=== PATIENT | female | born 1985 | race African-American/Black ===

== ENCOUNTER 2017-07-22 20:09 | Day surgery (SDC) | payer OTHER ==
[2017-07-22 20:37] VITALS: BMI 25.0
--- NOTE | 2017-07-23 06:58 | PRG ---
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 Alexia Mcdonald. CHIEF COMPLAINT: Abdominal pain. HISTORY OF PRESENT ILLNESS: The patient is a 31-year-old female, G1, P0 with an intrauterine pregnan cy at 40 weeks, who presented to Labor and Delivery with a 2-day history of abdominal pains, becoming more intense and more frequent this afternoon. Patient reports the last time she was checked on Julianne rsday. Approximately 3 days before presentation, she was 2 cm dilated here in the office. Denies an y recent illness, fever, fall, headache, chest pain, shortness of breath, nausea, vomiting, diarrhea, constipation. She denies rash, hip problems, knee problems, back problems, vaginal bleeding, leakag e of fluid, or urinary urgency. PAST MEDICAL HISTORY: Negative. PAST SURGICAL HISTORY: She has had wisdom teeth removed. ALLERGIES: No known drug allergies. MEDICATIONS: vitamins. SOCIAL HISTORY: Denies drug, alcohol, or tobacco use. OB HISTORY: This is her first . OB LABORATORY DATA: Blood type is A+, antibody screen is negative, RPR is nonreactive, HIV is nonrea ctive for the first and third trimester. Hepatitis B surface antigen is nonreactive. GC, Chlamydia negative. Group B strep is negative. REVIEW OF SYSTEMS: See HPI. PHYSICAL EXAMINATION: VITAL SIGNS: Blood pressure 118/75, heart rate is 74, respiratory rate is 16, temperature 98.7. GENERAL: She appears to be in no acute distress. She is alert and oriented and cooperative and plea micheline to interact with. HEAD: Normocephalic, atraumatic. LUNGS: Clear to auscultation bilaterally. HEART: Regular rate and rhythm. ABDOMEN: Soft and between contractions and nontender. EXTREMITIES: Nontender and nonedematous. CERVICAL EXAM: Per nursing staff, she is 215, -2 station with a repeat exam in approximately 3-1/2 h ours later, unchanged. heart tracing performed for pertinent labor over the course of over 3 hours. Baseline is noted to be in the 130s with moderate long-term variability, positive accelerations. No decelerations. T ocometer showing contractions. Spacing out to about 6-7 minutes apart . ASSESSMENT AND PLAN: The patient is a 31-year-old female with threatened labor, likely in latent lab or stage but is not making any progress over the course of 3-1/2 hours. The patient has opted to go home and has been given term-labor precautions and instructions to keep her doctor's appointment or t o return to Labor and Delivery as needed. Fetus has a category 1 tracing.
== END 2017-07-23 00:20 | disposition home or self-care (01) ==
LOC: L&D/OP 20:09
PROVIDERS: ATTEND Student in an Organized Health Care Education/Training Program
DX: O99.89 Other specified diseases and conditions complicating pregnancy, childbirth and the puerperium (principal); R10.9 Unspecified abdominal pain; Z3A.40 40 weeks gestation of pregnancy; Z79.899 Other long term (current) drug therapy; Z98.818 Other dental procedure status
CPT/HCPCS: 99283

== ENCOUNTER 2017-07-23 17:46 | Inpatient (IN) | payer OTHER ==
[2017-07-23 18:22] VITALS: BMI 25.0
[2017-07-23] MEDS ORDERED: Promethazine HCl 25 MG/ML VIAL IM PRN (18:32)
[2017-07-23] MEDS ORDERED: Ibuprofen 800 MG TAB PO PRN (18:32)
[2017-07-23] MEDS ORDERED: LR / Pitocin 40 units/1000 ml 1,000 ML IV PRN (18:32)
[2017-07-23] MEDS ORDERED: HYDROcodone/Acetaminophen 5/325 mg Tablet PO PRN ×2 (18:32)
[2017-07-23] MEDS ORDERED: Lidocaine 1% (PF) 30 ML VIAL SC PRN (18:32)
[2017-07-23] MEDS ORDERED: Ondansetron HCl/PF 4 MG/2 ML Vial IVP PRN (18:32)
--- NOTE | 2017-07-23 18:36 | PDOC.LDHP ---
Labor and Delivery H&P HPI: 31 yo G1Po patient of Dr Mcdonald admitted with regular CTXs. Was seen in L&D yesterday and was 2 cm then. No ROM, no PIH Sxs. No other issues. GBS negative. $cm after L&D triage check. Current gestational age (weeks): 40 Due date: 07/23/17 Dating criteria: last menstrual period Grav: 1 Para: 0 Current complications: none Abnormal US findings: No Current medications: none Previous surgical history: other (wisdom teeth) Allergies/Adverse Reactions: Allergies Allergy/AdvReac Type Severity Reaction Status Date / Time No Known Allergies Allergy Verified 07/22/17 20:30 Social history: none - Physical Exam Vital signs reviewed and normal: yes (BP 129/77) General: NAD Heart: RRR Lungs: CTAB Abdomen: gravid - Vaginal Exam cm dilated: 4 (BOWI) Effacement: 50% Station: -1 - Assessment L&D Assessment: term patient in labor - Plan Plan: admit to L&D (Dr Mcdonald notified of patient's admission status. She will assume care until 0000 07/24/17 and has asked us to assume care after that if delivers after.), labor augmentation if indicated, informed consent obtained
[2017-07-23] MEDS: Lactated Ringer's 1,000 ML IV SCH ×2 (18:42→20:31)
[2017-07-23 19:12] LABS: Hemoglobin 12.2 g/dL (12.0-16.0); Mean Corpuscular HGB CONC 33.3 g/dL (32.0-36.0); Mean Corpuscular Hemoglobin 30.2 pg (27.0-31.0); Mean Corpuscular Volume 90.8 fl (81.0-99.0); Mean Platelet Volume 8.6 fL (7.4-10.4); Platelet Count 153 thou/uL (130-400); RBC Distribution Width 11.8 % (11.5-14.5); Red Blood Cell (RBC) Count 4.04 mill/uL (4.20-5.40); White Blood Cell (WBC) Count 10.1 thou/uL (4.8-10.8)
[2017-07-23] MEDS ORDERED: Fentanyl 4 mcg/Marc 0.1% Cadd 100 ML ONE (19:23)
[2017-07-23 20:00] LABS: HBSAg Index 0.15 S/CO (0-0.99); HIV (1/2) Antibody/Antigen Non-Reactive (NonReactive); HIV 1/2 INDEX 0.06 S/CO (<1.00); Hep B Surf Ag Non-Reactive S/CO (NonReactive); Syphilis Antibody Nonreactive (Nonreactive); Syphilis Antibody Index 0.04 S/CO (<1.00 Non-Reactive)
--- NOTE | 2017-07-23 22:30 | PDOC.LDPN ---
Labor & Delivery Progress Note - Subjective Subjective: other (BIJAN in use) - Objective Vital signs reviewed and normal: yes General: NAD Uterine fundus: non tender SVE: by Me Dilation: 6 Effacement: 75% Station: -1 FHT: category 1 [place] contractions every: Q3-6 - Assessment (1) Active labor at term Code(s): [id number] - Current Visit: Yes Status: Acute Plan: continue plan of care
[2017-07-24] MEDS ORDERED: Fentanyl 4 mcg/Marc 0.1% Cadd 100 ML ONE (02:37)
[2017-07-24] MEDS ORDERED: Measles/Mumps/Rubella 10 MCG/0.5 ML VIAL SC ONE (05:01)
[2017-07-24] MEDS ORDERED: diphenhydrAMINE 25 MG CAP PO PRN (05:01)
[2017-07-24] MEDS ORDERED: Benzocaine/Menthol 20-0.5% 60 ML CAN TOP PRN (05:01)
[2017-07-24] MEDS ORDERED: Varicella virus, LIVE 0.5 ML VIAL SC ONE (05:01)
[2017-07-24] MEDS ORDERED: Adacel (T-DAP) 0.5 ML VIAL IM ONE (05:01)
[2017-07-24] MEDS ORDERED: Acetaminophen/Codeine 30-300mg Tablet PO PRN ×2 (05:01)
--- NOTE | 2017-07-24 05:06 | PDOC.OPDEL ---
OB Operative/Delivery Note Delivery Dr/Surgeon: Jose Assist: None Pre-Delivery Diagnosis: active labor Procedure/Post Delivery Dx: spontaneous vaginal delivery Anesthesia: epidural (And local for geovanna-clitoral tear (mucosal); also repaired a first degree right hymenal lacerato less than 2cm in length) - Findings A - 1 min: 8 - 5 min: 9 - Additional Findings/Plan Placenta delivered: spontaneous (abdulkadir mechanism, delivered within 5 minutes of child) Repaired Obstetrical Laceration: 1st degree Estimated blood loss: 300 Compilations/Other Findings: Vigorous female, apgars 8/9.3VC, no NC Post delivery plan: routine recovery (all counts correct)
[2017-07-24] MEDS ORDERED: LR / Pitocin 40 units/1000 ml 1,000 ML IV SCH (05:15)
[2017-07-24] MEDS: Ibuprofen 800 MG TAB PO SCH ×3 (06:01→21:54)
[2017-07-24] MEDS ORDERED: Lidocaine 2% MPF 10 ML AMP (For Epidural Use) ONE (08:47)
[2017-07-24] MEDS: Ferrous Sulfate 325 MG TAB PO SCH ×2 (09:12→16:16)
[2017-07-24] MEDS: Prenatal Vitamin 1 TAB PO SCH (09:13)
[2017-07-24] MEDS: Docusate Calcium (SURFAK) 240 MG CAP PO SCH ×2 (09:13→21:54)
[2017-07-24] MEDS: Lactated Ringer's 1,000 ML IV SCH ×3 (09:17→23:08)
[2017-07-25] MEDS: Ibuprofen 800 MG TAB PO SCH ×3 (05:30→21:53)
[2017-07-25 06:15] LABS: Hemoglobin 9.1 g/dL (12.0-16.0); Mean Corpuscular HGB CONC 32.5 g/dL (32.0-36.0); Mean Corpuscular Hemoglobin 29.8 pg (27.0-31.0); Mean Corpuscular Volume 91.6 fl (81.0-99.0); Mean Platelet Volume 8.7 fL (7.4-10.4); Platelet Count 151 thou/uL (130-400); RBC Distribution Width 11.8 % (11.5-14.5); Red Blood Cell (RBC) Count 3.04 mill/uL (4.20-5.40); White Blood Cell (WBC) Count 11.7 thou/uL (4.8-10.8)
[2017-07-25] MEDS: Docusate Calcium (SURFAK) 240 MG CAP PO SCH ×2 (09:01→21:53)
[2017-07-25] MEDS: Prenatal Vitamin 1 TAB PO SCH (09:01)
[2017-07-25] MEDS: Ferrous Sulfate 325 MG TAB PO SCH ×2 (09:02→18:15)
--- NOTE | 2017-07-25 10:07 | PRG ---
DATE OF SERVICE: 07/25/2017 The patient is a 31-year-old who is now day 1, status post an uncomplicated term spontaneo us vaginal delivery. She reports today that she is tolerating p.o., voiding on her own, having decre ased lochia and ambulating. PHYSICAL EXAMINATION: VITAL SIGNS: Blood pressure 91/57, temperature 98.0, pulse of 80, respiratory rate 20. GENERAL: She appears to be in no acute distress. She is alert and oriented, and cooperative and ple asant to interact with. HEENT: Head is normocephalic, atraumatic. ABDOMEN: Soft. Fundus is firm. EXTREMITIES: Nontender with minimal edema. Her hemoglobin is 9.1, hematocrit 27.9, platelets of 151,000. ASSESSMENT AND PLAN: The patient is a 31-year-old female who is now day 1, status post un complicated term spontaneous vaginal delivery, whose recovery has been routine thus far. Anticipate discharge tomorrow.
[2017-07-25] MEDS: Lactated Ringer's 1,000 ML IV SCH ×2 (10:21→18:08)
[2017-07-26] MEDS: Lactated Ringer's 1,000 ML IV SCH ×2 (05:40→12:56)
[2017-07-26] MEDS: Ibuprofen 800 MG TAB PO SCH ×2 (06:16→14:22)
[2017-07-26] MEDS: Ferrous Sulfate 325 MG TAB PO SCH (09:43)
[2017-07-26] MEDS: Prenatal Vitamin 1 TAB PO SCH (09:44)
[2017-07-26] MEDS: Docusate Calcium (SURFAK) 240 MG CAP PO SCH (09:44)
--- NOTE | 2017-07-26 12:16 | PDOC.PP ---
Post Progress Note Post Day #: 2 PO intake tolerated: yes Flatus: yes Ambulation: yes Weight Weight 150 lb - Physical Examination General: NAD Cardiovascular: RRR Respiratory: non-labored breathing Abdominal: no distention, appropriately TTP Fundus firm & at: umb-2 Skin: no rash Neurological: no gross focal deficits Psychiatric: normal affect Result Diagrams: 07/25/17 05:17 Additional Labs: Post Labs Hep Bs Antigen Non-Reactive S/CO (NonReactive) 07/23/17 18:42 (1) Vaginal delivery Code(s): O80 - ENCOUNTER FOR FULL-TERM UNCOMPLICATED DELIVERY Status: Acute
[2017-07-26 12:21] VITALS: TEMP 98.4
[2017-07-26 12:22] VITALS: BP 109/56
== END 2017-07-26 14:40 | disposition home or self-care (01) | DRG 775 ==
LOC: L&D/OP 17:46 → L&D 19:36 → 3SW 07-24 08:27
PROVIDERS: ADMIT Student in an Organized Health Care Education/Training Program; ATTEND Student in an Organized Health Care Education/Training Program
PROC: 10E0XZZ Delivery of Products of Conception, External Approach (ICD-10-PCS; principal; 2017-07-24)
PROC: 0HQ9XZZ Repair Perineum Skin, External Approach (ICD-10-PCS; 2017-07-24)
DX: O70.0 First degree perineal laceration during delivery (principal); Z37.0 Single live birth; Z3A.40 40 weeks gestation of pregnancy
CPT/HCPCS: 36415; 51702; 85027; 86780; 87340; 87389; 99283; 99285; J2001

== ENCOUNTER 2019-01-11 20:34 | Inpatient (IN) | payer OTHER ==
[~2019-01-11 20:34] MED LIST: Bupivacaine/Epinephrine 0.25% 30 ML VIAL ONE
[2019-01-11 21:04] VITALS: BMI 26.1
[2019-01-11] MEDS ORDERED: Ibuprofen 800 MG TAB PO PRN (21:41)
[2019-01-11] MEDS ORDERED: Acetaminophen 500 MG TAB PO PRN (21:41)
[2019-01-11] MEDS ORDERED: Promethazine HCl 25 MG/ML VIAL IM PRN (21:41)
[2019-01-11] MEDS ORDERED: Lidocaine 1% (PF) 30 ML VIAL SC PRN (21:41)
[2019-01-11] MEDS ORDERED: hydrALAZINE 20 MG/ML VIAL SLOW IVP PRN (21:41)
[2019-01-11] MEDS ORDERED: Acetaminophen/Codeine 30-300mg Tablet PO PRN ×2 (21:41)
[2019-01-11] MEDS ORDERED: Ondansetron PF 4 MG/2 ML Vial IVP PRN (21:41)
[2019-01-11] MEDS ORDERED: NS / Oxytocin 40 units/1000ml 1,000 ML IV PRN (21:41)
[2019-01-11] MEDS ORDERED: Butorphanol Tartrate 1 MG/ML VIAL SLOW IVP PRN (21:41)
[2019-01-11] MEDS ORDERED: Meperidine HCl/PF 25 MG/ML VIAL IM/IV PRN (21:41)
[2019-01-11] MEDS ORDERED: Zolpidem Tartrate 5 MG TAB PO PRN (21:41)
--- NOTE | 2019-01-11 21:50 | PDOC.LDHP ---
Labor and Delivery H&P Chief complaint: contractions HPI: 33 yo BF presents c/o regular UCs since this PM. Denies ROM or bleeding. Current gestational age (weeks): 40 Due date: 01/11/19 Dating criteria: last menstrual period Grav: 2 Para: 1 OB History Details: PNC with Dr. Mcdonald w/o complications. Current complications: none Abnormal US findings: No Past Medical History: None Current medications: pre-montana vitamins, other (Colace) Previous surgical history: none Allergies/Adverse Reactions: Allergies Allergy/AdvReac Type Severity Reaction Status Date / Time No Known Allergies Allergy Verified 01/11/19 21:02 Social history: none - Physical Exam Vital signs reviewed and normal: yes General: resting Heart: RRR Lungs: CTAB Abdomen: gravid Extremeties: trace edema FHT: category 1 [place] contractions every: UCs q 4-5 mins - Vaginal Exam cm dilated: 5 Effacement: 75% Station: -1 - OB Labs Blood type: A RH: positive Antibody Screen: negative HIV: negative RPR: negative HEPSAg: negative 1 hour GCT: negative GBS: positive Rubella: non-immune - Assessment L&D Assessment: term patient in labor - Plan Plan: admit to L&D, GBS antibiotic prophylaxis, informed consent obtained, anesthesia consult for pain management (Dr. Mcdonald notified of admit)
[2019-01-11] MEDS ORDERED: Penicillin G Potassium 5 MILL.UNITS in Sodium Chloride 0.9% 100 ML IVPB SCH (22:00)
[2019-01-11] MEDS ORDERED: NS w/ Oxytocin 10 units 500 ML IV SCH (22:00)
[2019-01-11] MEDS ORDERED: Lactated Ringer's 1,000 ML IV SCH (22:00)
[2019-01-11] MEDS ORDERED: Fentanyl 4 mcg/Bup 0.1% Cadd 100 ML ONE (22:35)
[2019-01-11 22:43] LABS: Hemoglobin 12.4 g/dL (12.0-16.0); Mean Corpuscular HGB CONC 32.8 g/dL (32.0-36.0); Mean Corpuscular Volume 88.5 fL (78.0-98.0); Mean Platelet Volume 9.1 fL (7.4-10.4); Platelet Count 159 thou/uL (130-400); RBC Distribution Width 11.9 % (11.5-14.5); Red Blood Cell (RBC) Count 4.29 mill/uL (4.20-5.40); White Blood Cell (WBC) Count 12.4 thou/uL (4.8-10.8)
[2019-01-11] MEDS ORDERED: Fentanyl 100 MCG/2 ML VIAL ONE (22:54)
[2019-01-11] MEDS: Lactated Ringer's 1,000 ML IV SCH ×2 (23:00→23:36)
[2019-01-11] MEDS ORDERED: Lidocaine 1.5%/Epinephrine 1:200,000 5 ML AMPUL IJ ONE (23:03)
[2019-01-11 23:20] LABS: Syphilis Antibody Nonreactive (Nonreactive); Syphilis Antibody Index 0.03 S/CO (<1.00 Non-Reactive)
[2019-01-11 23:21] LABS: HBSAg Index 0.26 S/CO (0-0.99); Hep B Surf Ag Non-Reactive S/CO (NonReactive)
--- NOTE | 2019-01-12 00:56 | PDOC.EVN ---
Event Note - Event Note Event Note: Comfortable with epidural. 1st dose Pen G given. SVE= 5/90/0, vtx. FHTs stable. UCs spaced to q 5-7 mins. AROM- clear. Plan: watch progress, augment if needed.
[2019-01-12] MEDS ORDERED: Promethazine HCl 25 MG/ML VIAL IM PRN (01:45)
[2019-01-12] MEDS ORDERED: Naloxone HCl 0.4 mg/ml Vial IVP PRN ×2 (01:45)
[2019-01-12] MEDS ORDERED: Communication Order-Pharmacy FS SCH (01:45)
[2019-01-12] MEDS ORDERED: Ondansetron PF 4 MG/2 ML Vial IVP PRN ×2 (01:45→06:48)
[2019-01-12] MEDS ORDERED: ePHEDrine/0.9% NaCl/PF SYRINGE 50 mg/10 ml SLOW IVP PRN (01:45)
[2019-01-12] MEDS ORDERED: Lactated Ringer's 500 ML IV PRN (01:45)
[2019-01-12] MEDS ORDERED: diphenhydrAMINE 50 MG/ML VIAL IVP PRN (01:45)
[2019-01-12] MEDS ORDERED: Fentanyl 4 mcg/Bupivacaine 0.1% Cassette 100 ML EPIDURAL SCH (01:45)
[2019-01-12] MEDS ORDERED: Acetaminophen 325 MG TAB PO PRN (01:45)
[2019-01-12] MEDS: Penicillin G 2.5 MILL.units 2.5 MILL.UNITS in Premix Bag 1 BAG IVPB SCH ×2 (03:14→07:31)
--- NOTE | 2019-01-12 03:53 | PDOC.OPDEL ---
OB Operative/Delivery Note Delivery Dr/Surgeon: Jasperet Pre-Delivery Diagnosis: active labor Procedure/Post Delivery Dx: spontaneous vaginal delivery Weeks gestation: 39 Anesthesia: epidural - Additional Findings/Plan Placenta delivered: spontaneous Repaired Obstetrical Laceration: none Estimated blood loss: QBL pending Compilations/Other Findings: Viable male OA over intact with loose cord x 1. Apgars 5/6. NICU personel present to give O2, PVP and CPAP. Placenta intact [place]. To recover in L&D. Post delivery plan: routine recovery
--- NOTE | 2019-01-12 04:14 | PDOC.EVN ---
Event Note - Event Note Event Note: Baby to NICU for evaluation. 2 doses of Pen G given. QBL reported as 605cc. Art cord gas returns 7.30.
[2019-01-12] MEDS ORDERED: NS / Oxytocin 40 units/1000ml 1,000 ML IV SCH (06:48)
[2019-01-12] MEDS ORDERED: hydrALAZINE 20 MG/ML VIAL SLOW IVP PRN (06:48)
[2019-01-12] MEDS ORDERED: Milk Of Magnesia 30 ML UDCUP PO PRN (06:48)
[2019-01-12] MEDS ORDERED: Adacel (T-DAP) 0.5 ML SYRINGE IM ONE (06:48)
[2019-01-12] MEDS ORDERED: Lanolin Ointment 7 GM TUBE TOP PRN (06:48)
[2019-01-12] MEDS ORDERED: Bisacodyl 10 MG SUPP PR PRN (06:48)
[2019-01-12] MEDS: Docusate Calcium (SURFAK) 240 MG CAP PO SCH ×2 (08:05→21:21)
[2019-01-12] MEDS: Ibuprofen 800 MG TAB PO SCH ×2 (08:05→17:36)
[2019-01-12] MEDS: Ferrous Sulfate 325 MG TAB PO SCH ×2 (12:29→17:37)
[2019-01-13] MEDS: Ibuprofen 800 MG TAB PO SCH ×3 (00:09→13:27)
[2019-01-13 05:43] LABS: #Eosinphils 0.2 thou/uL (0.0-0.7); #Lymphocytes 2.7 thou/uL (1.20-3.40); #Monocytes 0.8 thou/uL (0.11-0.59); #Neutrophils 5.6 thou/uL (1.40-6.50); %Basophils 0.3 % (0.0-1.0); %Eosinophils 1.7 % (0.0-10.0); %Lymphocytes 28.7 % (21.0-51.0); %Neutrophils 60.3 % (42.0-75.0); Hemoglobin 10.2 g/dL (12.0-16.0); Mean Corpuscular HGB CONC 32.5 g/dL (32.0-36.0); Mean Corpuscular Hemoglobin 29.2 pg (27.0-31.0); Mean Corpuscular Volume 89.7 fL (78.0-98.0); Mean Platelet Volume 8.8 fL (7.4-10.4); Platelet Count 142 thou/uL (130-400); RBC Distribution Width 11.8 % (11.5-14.5); Red Blood Cell (RBC) Count 3.49 mill/uL (4.20-5.40); White Blood Cell (WBC) Count 9.3 thou/uL (4.8-10.8)
[2019-01-13] MEDS: Ferrous Sulfate 325 MG TAB PO SCH ×2 (07:24→08:19)
[2019-01-13] MEDS: Docusate Calcium (SURFAK) 240 MG CAP PO SCH (08:17)
[2019-01-13] MEDS ORDERED: Measles/Mumps/Rubella 10 MCG/0.5 ML VIAL SC ONE (09:42)
--- NOTE | 2019-01-13 09:42 | PDOC.PP ---
Post Progress Note Post Day #: 1 PO intake tolerated: yes Flatus: yes Ambulation: yes Vital Signs (12 hours) Temp Pulse Resp BP Pulse Ox 01/13/19 08:35 98.2 F 73 20 97/58 L 98 01/13/19 00:10 98.0 F 77 16 115/69 Weight Weight 157 lb - Physical Examination General: NAD Cardiovascular: RRR Respiratory: non-labored breathing Abdominal: no distention, appropriately TTP Fundus firm & at: umb-2 Neurological: no gross focal deficits Psychiatric: normal affect Result Diagrams: 01/13/19 05:27 Additional Labs: Post Labs Blood Type A POSITIVE 01/11/19 22:19 Hep Bs Antigen Non-Reactive S/CO (NonReactive) 01/11/19 22:19 - Assessment/Plan PPD1 s/p TSVD VSSAF Hgb 10.2, mild asx anemia due to surgical blood loss RNI-MMR prior to DC Doing well, DC home FU 6w
[2019-01-13 11:15] VITALS: BP 122/62; TEMP 98.1
== END 2019-01-13 16:25 | disposition home or self-care (01) | DRG 807 ==
LOC: L&D/OP 20:34 → L&D 21:44 → 3SW 01-12 07:16
PROVIDERS: ADMIT Student in an Organized Health Care Education/Training Program; ATTEND Student in an Organized Health Care Education/Training Program
PROC: 10E0XZZ Delivery of Products of Conception, External Approach (ICD-10-PCS; principal; 2019-01-11)
DX: O48.0 Post-term pregnancy (principal); Z37.0 Single live birth; Z3A.40 40 weeks gestation of pregnancy; O99.02 Anemia complicating childbirth; D50.0 Iron deficiency anemia secondary to blood loss (chronic)
CPT/HCPCS: 36415; 51702; 82805; 85025; 85027; 86780; 86850; 86900; 86901; 87340; 88307; 90707; 99285; J2001; J2540; J3010; J3490